=== PATIENT | female | born 1930 | race Caucasian/White ===

== ENCOUNTER → 2017-02-27 | Outpatient (CLI) | payer MEDICARE, OTHER ==
[~2017-02-27] MED LIST: ACET325T14 PO; ACLI400A2 INH; ALBU8.5H5 INH; AMLO5TAB4 PO; AZIT500T5 PO; ESOM40CA PO; FLUT1DIS3 INH; GEMF600T PO; HYDR-3240 PO; INSU100V8 SQ; LISI-170 PO; MULT-658 PO; OMEG1CAP23 PO; POLY17PO5 PO; PRAV40TA2 PO; PRED10TA PO; SITA1TAB PO; TRAM-47 PO; VERA180C4 PO
== END | disposition home or self-care (01) ==
LOC: CFH 13:56
PROVIDERS: ATTEND Nurse Practitioner Critical Care Medicine
DX: Z46.82 Encounter for fitting and adjustment of non-vascular catheter (principal); G93.89 Other specified disorders of brain; Z98.2 Presence of cerebrospinal fluid drainage device
CPT/HCPCS: 70250; 70360; 70450; 71020; 74020

== ENCOUNTER 2018-03-18 21:54 | Inpatient (IN) | payer MEDICARE, OTHER ==
[~2018-03-18] VITALS: Ht 165.1 cm; Wt 78.0 kg
--- NOTE | 2018-03-18 22:18 | NUR ---
BIB [facility] FOR DIZZINESS THAT STARTED AT 1400 TODAY AND JUST GOT WORSE, DENIES FALL OR NAUSEA. 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 MONITORS APPLIED, ASSISTED PT ON BEDPAN, FAMILY AT BEDSIDE, SIDERAILS UP X2, CALL LIGHT WITHIN REACH. AWAITING ERP FOR EVAL AND ORDERS.
[2018-03-18] MEDS ORDERED: SPIR25TA5 PO (22:28)
[2018-03-18] MEDS ORDERED: TELM1TAB2 PO (22:28)
--- NOTE | 2018-03-18 22:40 | NUR ---
erp at bedside for eval
[2018-03-18] MEDS ORDERED: MECLIZINE CHEWABLE 25 MG TAB PO ONE (23:00)
--- NOTE | 2018-03-18 23:00 | NUR ---
iv site started, labs drawn, eligibility technician at bedside.
[2018-03-18] MEDS ORDERED: MECLIZINE CHEWABLE 25 MG TAB ONE (23:04)
--- NOTE | 2018-03-18 23:11 | NUR ---
assisted pt to bedpan, skincare completed. pt to ct
[2018-03-18 23:16] LABS: BASOPHILS # (AUTO) 0.02 x10^3/uL (0-0.1); BASOPHILS % (AUTO) 0 % (0-1); EOSINOPHILS # (AUTO) 0.24 x10^3/uL (0-0.4); EOSINOPHILS % (AUTO) 4 % (1-7); LYMPHOCYTES # (AUTO) 1.32 x10^3/uL (1-3.4); LYMPHOCYTES % (AUTO) 23 % (22-44); MD NO; MEAN CORPUSCULAR HEMOGLOBIN 30.1 pg (27.0-34.8); MEAN CORPUSCULAR HGB CONC 34.2 g/dL (32.4-35.8); MONOCYTES # (AUTO) 0.66 x10^3/uL (0.2-0.8); MONOCYTES % (AUTO) 11 % (2-9); NEUTROPHILS # (AUTO) 3.54 x10^3/uL (1.8-6.8); NEUTROPHILS % (AUTO) 61 % (42-75); PLATELET COUNT 258 x10^3/uL (130-400); RED BLOOD COUNT 4.76 x10^6/uL (3.82-5.3); RED CELL DISTRIBUTION WIDTH 13.1 % (9.6-15.2)
[2018-03-18 23:27] LABS: ALANINE AMINOTRANSFERASE 24 U/L (12-78); ALBUMIN 3.4 g/dL (3.4-5.0); ANION GAP 8 mmol/L (5-15); CALCIUM 8.8 mg/dL (8.5-10.1); CHLORIDE 107 mmol/L (98-107); CREATININE 1.01 mg/dL (0.55-1.02)
--- NOTE | 2018-03-18 23:30 | NUR ---
pt resting calmly, denies pain or needs, call light within reach, family at bedside, awaiting ct result
[2018-03-18 23:32] LABS: ALKALINE PHOSPHATASE 119 U/L (45-117); BILIRUBIN,TOTAL 0.3 mg/dL (0.2-1.0); TOTAL PROTEIN 6.4 g/dL (6.4-8.2); TROPONIN I < 0.015 ng/mL (0.000-0.045)
--- NOTE | 2018-03-19 00:21 | NUR ---
pt assisted off bedpan, denies pain or further needs. admit md at bedside for eval.
[2018-03-19] MEDS ORDERED: BISACODYL 10 MG SUPP PR PRN (00:30)
[2018-03-19] MEDS ORDERED: ONDANSETRON ODT 4 MG PO PRN (00:30)
[2018-03-19] MEDS ORDERED: DIAZEPAM 5 MG TABLET PO PRN (00:30)
[2018-03-19] MEDS ORDERED: POLYETHYLENE GLYCOL 17 GM PACKET PO PRN (00:30)
[2018-03-19] MEDS ORDERED: MECLIZINE 12.5 MG TABLET PO PRN (00:30)
[2018-03-19] MEDS ORDERED: ENALAPRILAT 1.25 MG/ML, 2ML IVPush PRN (00:30)
[2018-03-19] MEDS ORDERED: ACETAMINOPHEN 325 MG TABLET PO PRN (00:30)
[2018-03-19 00:54] LABS: HEMOGLOBIN A1C 8.8 % (4.2-6.3)
[2018-03-19 01:13] VITALS: BP 189/82
[2018-03-19] MEDS: INSULIN GLARGINE 100 UNITS/ML, PEN SQ-INSULIN SCH ×2 (01:44→20:39)
[2018-03-19 03:45] VITALS: BP 158/69
[2018-03-19 07:09] VITALS: BP 150/77
[2018-03-19] MEDS: SENNA/DOCUSATE TABLET PO SCH (08:03)
[2018-03-19] MEDS: MULTIVITAMIN 1 TABLET PO SCH (08:45)
[2018-03-19] MEDS: SPIRONOLACTONE 25 MG TABLET PO SCH (08:45)
[2018-03-19] MEDS: metFORMIN 500 MG TABLET PO SCH (08:45)
[2018-03-19] MEDS: HYDROCHLOROTHIAZIDE 12.5 MG CAPSULE PO SCH (08:45)
[2018-03-19] MEDS: LINAGLIPTIN 5 MG TAB PO SCH (08:45)
[2018-03-19] MEDS: SODIUM CHLORIDE FLUSH 10ML SYR IVF SCH ×2 (08:45→20:39)
[2018-03-19] MEDS: OMEGA-3/FISH OIL CAPSULE PO SCH (08:45)
[2018-03-19] MEDS: LOSARTAN 50MG TABLET PO SCH (08:45)
[2018-03-19] MEDS: VERAPAMIL ER 180MG TABLET.ER PO SCH (08:45)
[2018-03-19 13:59] VITALS: BP 150/74
[2018-03-19] MEDS ORDERED: GADOBUTROL 7.5 MMOL/7.5 ML PFS ONE (14:35)
[2018-03-19 19:48] VITALS: BP 136/67
[2018-03-19] MEDS ORDERED: PRAVASTATIN 40 MG TABLET PO SCH (21:00)
[2018-03-20 02:49] VITALS: BP 152/80
[2018-03-20 07:25] VITALS: BP 156/68
[2018-03-20] MEDS: SENNA/DOCUSATE TABLET PO SCH (07:39)
[2018-03-20] MEDS: LOSARTAN 50MG TABLET PO SCH (08:08)
[2018-03-20] MEDS: metFORMIN 500 MG TABLET PO SCH (08:08)
[2018-03-20] MEDS: HYDROCHLOROTHIAZIDE 12.5 MG CAPSULE PO SCH (08:08)
[2018-03-20] MEDS: MULTIVITAMIN 1 TABLET PO SCH (08:08)
[2018-03-20] MEDS: OMEGA-3/FISH OIL CAPSULE PO SCH (08:08)
[2018-03-20] MEDS: SPIRONOLACTONE 25 MG TABLET PO SCH (08:08)
[2018-03-20] MEDS: VERAPAMIL ER 180MG TABLET.ER PO SCH (08:09)
[2018-03-20] MEDS: SODIUM CHLORIDE FLUSH 10ML SYR IVF SCH (08:09)
[2018-03-20] MEDS: LINAGLIPTIN 5 MG TAB PO SCH (08:09)
== END 2018-03-20 12:31 | disposition home or self-care (01) | DRG 78 ==
LOC: ED 23:16 → EDIP 03-19 00:15 → 5SO 03-19 00:56
PROVIDERS: ADMIT Internal Medicine; ATTEND Internal Medicine
DX: I67.4 Hypertensive encephalopathy (principal); G91.2 (Idiopathic) normal pressure hydrocephalus; H81.10 Benign paroxysmal vertigo, unspecified ear; I10 Essential (primary) hypertension; E78.5 Hyperlipidemia, unspecified; M19.90 Unspecified osteoarthritis, unspecified site; Z79.4 Long term (current) use of insulin; Z79.899 Other long term (current) drug therapy; H55.00 Unspecified nystagmus; E11.65 Type 2 diabetes mellitus with hyperglycemia; Z91.81 History of falling
CPT/HCPCS: 36415; 70250; 70450; 70544; 70553; 71045; 72040; 74018; 80053; 82962; 83036; 84484; 85025; 93005; 99285; A9585; G0378; J1815

== ENCOUNTER → 2019-11-03 | Outpatient (CLI) | payer MEDICARE, OTHER ==
[~2019-11-03] MED LIST changes: -ACLI400A2 INH; +ACLI400A3 INH; +AMOX1TAB12 PO; +AZIT500T10 PO; -AZIT500T5 PO; +DOXA2TAB9 PO; +GABA-826 PO; +GABA300C10 PO; +HYDR12.517 PO; +LATA2.5D3 EACHEYE; +LATA7.5D EACHEYE; +LEVE500T53 PO; +LOSA50TA2 PO; +OMEP20TA62 PO; +PHEN50TA PO; +PRAV40TA PO; +SENN-193 PO; +SPIR25TA PO; +SPIR25TA5 PO; +TELM1TAB2 PO; +VERA180T6 PO
== END | disposition home or self-care (01) ==
LOC: CFH 09:03
PROVIDERS: ATTEND Neurological Surgery
DX: I67.82 Cerebral ischemia (principal); G91.0 Communicating hydrocephalus
CPT/HCPCS: 70450

== ENCOUNTER 2019-11-04 00:27 | Emergency (ER) | payer MEDICARE, OTHER ==
[~2019-11-04] VITALS: Ht 165.1 cm; Wt 73.3 kg
[2019-11-04 00:38] VITALS: BP 157/73
--- NOTE | 2019-11-04 01:09 | NUR ---
pa at bedside
[2019-11-04] MEDS ORDERED: NEOSPORIN OINT. PKT 1 PACKET ONE (01:35)
--- NOTE | 2019-11-04 02:42 | NUR ---
Patient given discharge instructions and they have confirmed that they understand the instructions. Patient ambulatory with steady gait.
== END 2019-11-04 02:44 | disposition home or self-care (01) ==
LOC: ED 01:23
DX: S51.811A Laceration without foreign body of right forearm, initial encounter (principal); I10 Essential (primary) hypertension; M19.90 Unspecified osteoarthritis, unspecified site; E11.9 Type 2 diabetes mellitus without complications; Z90.89 Acquired absence of other organs; Z90.49 Acquired absence of other specified parts of digestive tract; Z90.710 Acquired absence of both cervix and uterus; Z86.73 Personal history of transient ischemic attack (TIA), and cerebral infarction without residual deficits; W01.0XXA Fall on same level from slipping, tripping and stumbling without subsequent striking against object, initial encounter; Y93.89 Activity, other specified; Y92.098 Other place in other non-institutional residence as the place of occurrence of the external cause; Y99.8 Other external cause status
CPT/HCPCS: 12032; 99284

== ENCOUNTER 2019-11-29 15:24 | Emergency (ER) | payer MEDICARE, OTHER ==
[~2019-11-29] VITALS: Ht 160 cm; Wt 75.5 kg
--- NOTE | 2019-11-29 15:41 | NUR ---
[facility] PT HAD GLF AND HIT HER HEAD. DENIES LOC, PT A&O X4. HX CRANIOTOMY WITH SHUNT, AND SEIZURES. PLACED ON CARDIAC AND VITALS MONITORS, FALL PRECAUTIONS IN PLACE. DAUGHTER AT BEDSIDE.
[2019-11-29] MEDS ORDERED: LAMO25TA9 PO (16:05)
[2019-11-29 17:07] VITALS: BP 138/71
[2019-11-29] MEDS ORDERED: MECLIZINE CHEWABLE 25 MG TAB PO ONE (17:30)
[2019-11-29] MEDS ORDERED: MECLIZINE CHEWABLE 25 MG TAB ONE (17:31)
== END 2019-11-29 17:56 | disposition home or self-care (01) ==
LOC: ED 16:38
DX: S09.90XA Unspecified injury of head, initial encounter (principal); H00.015 Hordeolum externum left lower eyelid; I10 Essential (primary) hypertension; R42 Dizziness and giddiness; W19.XXXA Unspecified fall, initial encounter; Y93.89 Activity, other specified; Y92.89 Other specified places as the place of occurrence of the external cause; Y99.8 Other external cause status
CPT/HCPCS: 70450; 72125; 93005; 99285

== ENCOUNTER 2020-02-03 21:02 | Emergency (ER) | payer MEDICARE, OTHER ==
[~2020-02-03] VITALS: Ht 165.1 cm; Wt 70.0 kg
[~2020-02-03 21:02] MED LIST changes: +LAMO25TA9 PO; -LATA2.5D3 EACHEYE; +LATA2.5D4 EACHEYE
--- NOTE | 2020-02-03 21:43 | NUR ---
Patient comes in with daughter at bedside with concerns of a head injury after falling and hitting head. Patient denies any complaints of pain at this time, Neuro intact. Patient resting comfortably at this time, call light within reach, VSS. Provider at bedside.
[2020-02-03 23:10] VITALS: BP 141/67
== END 2020-02-03 23:21 | disposition home or self-care (01) ==
LOC: ED 21:39
DX: S09.90XA Unspecified injury of head, initial encounter (principal); R29.818 Other symptoms and signs involving the nervous system; R56.9 Unspecified convulsions; I10 Essential (primary) hypertension; E11.9 Type 2 diabetes mellitus without complications; M19.90 Unspecified osteoarthritis, unspecified site; Z90.89 Acquired absence of other organs; Z90.49 Acquired absence of other specified parts of digestive tract; Z90.710 Acquired absence of both cervix and uterus; W18.39XA Other fall on same level, initial encounter; Y93.89 Activity, other specified; Y92.098 Other place in other non-institutional residence as the place of occurrence of the external cause; Y99.8 Other external cause status
CPT/HCPCS: 70450; 99284

== ENCOUNTER 2020-05-27 13:22 | Inpatient (IN) | payer MEDICARE, OTHER ==
[~2020-05-27] VITALS: Ht 165.1 cm; Wt 73.0 kg
[~2020-05-27 13:22] MED LIST changes: +HYDR-1067 PO; -HYDR-3240 PO
--- NOTE | 2020-05-27 13:42 | NUR ---
PT BIB EMS FOR [facility] AFTER TRIPPING COMING OUT OF HER BATHROOM TODAY. PT FELL TO THE CARPETING. DENIES LOC OR TAKING BLOOD THINNERS. PT CO OF LEFT SHOULDER, ELBOW AND RIB PAIN. 05/30. NO MEDS GIVEN UNSTACKER. LEFT ELBOW SKIN TEAR BLEEDING CONTROLLED BY EMS WITH GAUZE. PT RESTING IN GURNEY. CONNECTED TO MONITORING EQUIPMENT. WARM BLANKETS PROVIDED.
--- NOTE | 2020-05-27 14:05 | NUR ---
REPORT RECEIVED FROM WAYNE OBANDO
[2020-05-27] MEDS ORDERED: DIPH,PERTUSS(ACELL),TET VAC/PF 0.5 ML IM-VACC ONE ×2 (14:30→15:12)
[2020-05-27] MEDS ORDERED: NEOSPORIN OINT. PKT 1 PACKET ONE (14:38)
[2020-05-27] MEDS ORDERED: ACETAMINOPHEN 500 MG TABLET ONE (15:12)
--- NOTE | 2020-05-27 15:19 | NUR ---
PT TO CT
[2020-05-27] MEDS ORDERED: ACETAMINOPHEN 500 MG TABLET PO ONE (15:30)
[2020-05-27] MEDS ORDERED: OMNIPAQUE 350 MG/ML, 75ML BOTTLE ONE (15:41)
--- NOTE | 2020-05-27 16:15 | NUR ---
PT RESTING COMFORTABLY. CALL LIGHT WITHIN REACH
[2020-05-27] MEDS ORDERED: SODIUM CHLORIDE FLUSH 10ML SYR IVF ONE (17:30)
[2020-05-27] MEDS ORDERED: MORPHINE SULFATE 4 MG/ML, 1ML IVPush PRN (17:30)
--- NOTE | 2020-05-27 17:40 | NUR ---
PT GIVEN PAIN MEDICATIONS PER MAR. PT ASKED TO GET BLOOD SUGAR CHECKED. BS 101.
[2020-05-27 17:53] LABS: BASOPHILS % (AUTO) 1 % (0-1); EOSINOPHILS % (AUTO) 1 % (1-7); LYMPHOCYTES % (AUTO) 9 % (22-44); MEAN CORPUSCULAR HEMOGLOBIN 29.9 pg (27.0-34.8); MEAN CORPUSCULAR HGB CONC 34.2 g/dL (32.4-35.8); MEAN PLATELET VOLUME 6.5 fL (7.4-10.4); MONOCYTES % (AUTO) 7 % (2-9); NEUTROPHILS % (AUTO) 83 % (42-75); PLATELET COUNT 271 x10^3/uL (130-400); RED BLOOD COUNT 4.69 x10^6/uL (3.82-5.3); RED CELL DISTRIBUTION WIDTH 13.2 % (9.6-15.2)
[2020-05-27 17:54] LABS: MD NO
[2020-05-27 18:02] LABS: ALANINE AMINOTRANSFERASE 23 U/L (12-78); ALBUMIN 3.6 g/dL (3.4-5.0); ANION GAP 7 mmol/L (5-15); CALCIUM 9.1 mg/dL (8.5-10.1); CHLORIDE 109 mmol/L (98-107); CREATININE 1.09 mg/dL (0.55-1.02)
[2020-05-27 18:04] LABS: ALKALINE PHOSPHATASE 76 U/L (45-117); BILIRUBIN,TOTAL 0.5 mg/dL (0.2-1.0); TOTAL PROTEIN 6.6 g/dL (6.4-8.2)
--- NOTE | 2020-05-27 18:10 | NUR ---
REPORT GIVEN TO WAYNE ROMERO
[2020-05-27] MEDS ORDERED: LIDODERM 5% PATCH TD PRN (19:30)
[2020-05-27] MEDS ORDERED: MELATONIN 5 MG TABLET PO PRN (19:30)
[2020-05-27] MEDS ORDERED: DOCUSATE 100 MG CAPSULE PO PRN (19:30)
[2020-05-27] MEDS ORDERED: morphine SULFATE 10 MG/ML, 1ML IVPush PRN (19:30)
[2020-05-27] MEDS ORDERED: ENALAPRILAT 1.25 MG/ML, 2ML IVPush PRN (19:30)
[2020-05-27] MEDS ORDERED: ACETAMINOPHEN 325 MG TABLET PO PRN (19:30)
[2020-05-27 19:31] VITALS: BP 126/67
[2020-05-27] MEDS ORDERED: PRAVASTATIN 40 MG TABLET PO SCH (21:00)
[2020-05-27] MEDS ORDERED: LATANOPROST OPHTH 0.005%, 2.5ML EACHEYE SCH (21:00)
[2020-05-27] MEDS ORDERED: INSULIN GLARGINE 100 UNITS/ML, PEN SQ-INSULIN SCH (21:00)
[2020-05-27] MEDS ORDERED: GABAPENTIN 100 MG CAPSULE ONE (21:05)
[2020-05-27] MEDS ORDERED: PRAVASTATIN 40 MG TABLET ONE (21:05)
[2020-05-27] MEDS: LEVETIRACETAM 500 MG TABLET PO SCH (21:13)
[2020-05-27] MEDS: GABAPENTIN 100 MG CAPSULE PO SCH (21:14)
[2020-05-27] MEDS: LAMOTRIGINE 25 MG TABLET PO SCH (21:58)
[2020-05-28 01:00] VITALS: BP 125/70
[2020-05-28 01:09] VITALS: BP 135/70
[2020-05-28 01:25] VITALS: BP 131/75
[2020-05-28 05:49] LABS: BASOPHILS % (AUTO) 1 % (0-1); EOSINOPHILS % (AUTO) 2 % (1-7); LYMPHOCYTES % (AUTO) 14 % (22-44); MEAN CORPUSCULAR HEMOGLOBIN 29.3 pg (27.0-34.8); MEAN CORPUSCULAR HGB CONC 33.8 g/dL (32.4-35.8); MEAN PLATELET VOLUME 6.5 fL (7.4-10.4); MONOCYTES % (AUTO) 10 % (2-9); NEUTROPHILS % (AUTO) 73 % (42-75); PLATELET COUNT 272 x10^3/uL (130-400); RED BLOOD COUNT 4.78 x10^6/uL (3.82-5.3)
[2020-05-28 06:01] LABS: CHLORIDE 109 mmol/L (98-107)
[2020-05-28 06:03] LABS: MD NO
[2020-05-28 06:17] LABS: ANION GAP 8 mmol/L (5-15); CALCIUM 9.5 mg/dL (8.5-10.1); CREATININE 0.98 mg/dL (0.55-1.02); FREE T4 (FREE THYROXINE) 1.01 ng/dL (0.76-1.46)
[2020-05-28 07:32] VITALS: BP 139/71
[2020-05-28] MEDS ORDERED: TEMPLATE NON-FORMULARY MED. (Sitagliptin Phos/Metformin Hcl** (Janumet 50-500 Mg Tablet**) PO SCH (09:00)
[2020-05-28] MEDS ORDERED: LINAGLIPTIN 5 MG TAB PO SCH (09:00)
[2020-05-28] MEDS ORDERED: HYDROCHLOROTHIAZIDE 12.5 MG CAPSULE PO SCH (09:00)
[2020-05-28] MEDS ORDERED: metFORMIN 500 MG TABLET PO SCH (09:00)
[2020-05-28] MEDS ORDERED: LOSARTAN 50MG TABLET PO SCH (09:00)
[2020-05-28] MEDS ORDERED: VERAPAMIL 180 MG CAP. ER PO SCH (09:00)
[2020-05-28] MEDS ORDERED: SPIRONOLACTONE 25 MG TABLET PO SCH (09:00)
[2020-05-28] MEDS: LAMOTRIGINE 25 MG TABLET PO SCH (10:06)
[2020-05-28] MEDS: GABAPENTIN 100 MG CAPSULE PO SCH (10:07)
[2020-05-28] MEDS: LEVETIRACETAM 500 MG TABLET PO SCH (10:07)
[2020-05-28] MEDS ORDERED: LEVE500T53 PO (12:47)
== END 2020-05-28 14:10 | disposition home health service (06) | DRG 189 ==
LOC: ED 13:54 → EDIP 17:25 → 3N 18:24 → 4EST 19:45 → DCLOUNGE 05-28 13:54
PROVIDERS: ADMIT Internal Medicine; ATTEND Internal Medicine
DX: J96.01 Acute respiratory failure with hypoxia (principal); W01.0XXA Fall on same level from slipping, tripping and stumbling without subsequent striking against object, initial encounter; E11.9 Type 2 diabetes mellitus without complications; E78.00 Pure hypercholesterolemia, unspecified; E78.5 Hyperlipidemia, unspecified; G40.909 Epilepsy, unspecified, not intractable, without status epilepticus; Z66 Do not resuscitate; G89.11 Acute pain due to trauma; M19.012 Primary osteoarthritis, left shoulder; H40.9 Unspecified glaucoma; I11.9 Hypertensive heart disease without heart failure; Z79.4 Long term (current) use of insulin; Z86.73 Personal history of transient ischemic attack (TIA), and cerebral infarction without residual deficits; Z90.710 Acquired absence of both cervix and uterus; Z98.2 Presence of cerebrospinal fluid drainage device; Z88.1 Allergy status to other antibiotic agents; Z88.8 Allergy status to other drugs, medicaments and biological substances; Z90.49 Acquired absence of other specified parts of digestive tract; Y93.89 Activity, other specified; Y92.091 Bathroom in other non-institutional residence as the place of occurrence of the external cause; Y99.8 Other external cause status
CPT/HCPCS: 36415; 70450; 71260; 80048; 80053; 82962; 83605; 84439; 84443; 85025; 90715; 93005; 99285; G0378; Q9967; J1815; J2270